=== PATIENT | male | born 1955 | race Asian ===

== ENCOUNTER 2023-10-28 06:35 | Inpatient (IN) | payer MEDICARE, OTHER ==
[~2023-10-28] VITALS: Ht 170.2 cm; Wt 69.2 kg
[2023-10-28 07:09] LABS: CALCIUM, TOTAL 9.4 mg/dL (8.8-10.5); CREATININE 1.54 mg/dL (0.60-1.30); POTASSIUM 3.4 mmol/L (3.5-5.1)
[2023-10-28 07:10] LABS: BASOPHILS % (AUTO) 0.6 % (0.0-2.0); EOSINOPHILS % (AUTO) 1.6 % (1.0-6.0); HEMATOCRIT 43.5 % (41-53); HEMOGLOBIN 14.6 g/dL (13.5-17.5); LYMPHOCYTES # (AUTO) 2.8 K/uL (1.0-4.8); LYMPHOCYTES % (AUTO) 30.2 % (22.0-44.0); MEAN CORPUSCULAR HEMOGLOBIN 31.8 pg (26.0-34.0); MEAN CORPUSCULAR HGB CONC 33.5 G/dL (31.0-37.0); MEAN CORPUSCULAR VOLUME 95 fL (80-100); MONOCYTES % (AUTO) 11.1 % (2.0-9.0); NEUTROPHILS # (AUTO) 5.2 K/uL (1.8-7.7); NEUTROPHILS % (AUTO) 56.5 % (40.0-70.0); PLATELET COUNT (AUTO) 243 K/uL (150-450); RED BLOOD CELL COUNT(AUTO) 4.58 MIL/uL (4.50-5.90); RED CELL DISTRIBUTION WIDTH 13.4 % (11.5-14.5); WHITE BLOOD COUNT (AUTO) 9.1 K/uL (4.5-11.0)
[2023-10-28 07:15] LABS: ALBUMIN 3.4 g/dL (3.4-5.0); BILIRUBIN,TOTAL 0.6 mg/dL (0.1-1.0); TOTAL PROTEIN, SERUM 8.3 g/dL (6.4-8.2)
[2023-10-28 07:17] LABS: TROPONIN I-HIGH SENSITIVITY 15 ng/L (<76)
[2023-10-28] MEDS: LABETALOL HCL 5 MG/ML 20 ML VIAL IVP ONE ×2 (07:18→08:03)
[2023-10-28 07:23] LABS: PROTHROMBIN TIME 10.9 SEC (9.4-11.6)
[2023-10-28] MEDS ORDERED: BACL10TA PO (07:34)
[2023-10-28] MEDS ORDERED: ATOR40TA28 PO (07:34)
[2023-10-28] MEDS ORDERED: ALFU10TA30 PO (07:34)
[2023-10-28] MEDS ORDERED: METF-1211 PO (07:34)
[2023-10-28] MEDS ORDERED: ACETAMINOPHEN 650 MG RECTAL SUPPOSITORY PR ONE (07:45)
[2023-10-28 07:54] LABS: COVID AG,FIA SOURCE NASAL SWAB
[2023-10-28 07:59] LABS: APPEARANCE,URINE CLEAR (CLEAR); BILIRUBIN,URINE NEGATIVE (NEGATIVE); COLOR,URINE COLORLESS (YELLOW); GLUCOSE, URINE (UA) NEGATIVE (NEGATIVE); KETONES,URINE NEGATIVE (NEGATIVE); LEUKOCYTE ESTERASE ,URINE NEGATIVE (NEGATIVE); NITRATE,URINE NEGATIVE (NEGATIVE); OCCULT BLOOD,URINE SMALL (NEGATIVE); PH,URINE 6.5 (5.0-8.0); PH,URINE DRUG SCREEN 6.5 (5.0-8.0); PROTEIN,URINE NEGATIVE (NEGATIVE); SPECIFIC GRAVITIY, URINE 1.048 (1.003-1.030); UROBILINOGEN,URINE <=1.0 mg/dL (<=1.0)
[2023-10-28] MEDS: ASPIRIN 300 MG RECTAL SUPPOSITORY PR ONE (08:02)
[2023-10-28 08:05] LABS: AMPHET/METH SCREEN,URINE POSITIVE (NEGATIVE); BARBITURATE SCREEN, URINE NEGATIVE (NEGATIVE); BENZODIAZEPINES SCREEN,URINE NEGATIVE (NEGATIVE); CANNABINOID SCREEN,URINE NEGATIVE (NEGATIVE); COCAINE SCREEN,URINE NEGATIVE (NEGATIVE); METHADONE SCREEN, URINE NEGATIVE (NEGATIVE); OPIATE SCREEN,URINE NEGATIVE (NEGATIVE); PHENCYCLIDINE SCREEN,URINE NEGATIVE (NEGATIVE)
[2023-10-28 08:07] LABS: ALCOHOL, URINE DRUG SCREEN NEGATIVE (NEGATIVE)
[2023-10-28 08:21] LABS: SARS-COV2 (COVID) ANTIGEN,FIA Negative (Negative)
[2023-10-28 08:23] LABS: BACTERIA,URINE Rare /HPF (None Seen); SQUAMOUS EPITHELIAL CELL,UR Few /LPF (None Seen); WBC,URINE 0-2 /HPF (0-5)
[2023-10-28] MEDS: HydrALAZINE HCL 20 MG/ML VIAL IVP ONE (08:54)
[2023-10-28] MEDS ORDERED: ACETAMINOPHEN 325 MG TABLET PO PRN (12:30)
[2023-10-28] MEDS ORDERED: ZOLPIDEM TARTRATE 5 MG TABLET PO PRN (12:30)
[2023-10-28] MEDS ORDERED: MAGNESIUM HYDROXIDE SUSPENSION 30 ML UDCUP PO PRN (12:30)
[2023-10-28] MEDS ORDERED: HYDROCODONE/ACETAMINOPHEN 5-325 MG TABLET PO PRN (12:30)
[2023-10-28] MEDS ORDERED: ONDANSETRON HCL 4 MG/2 ML VIAL IVP PRN (12:30)
[2023-10-28] MEDS ORDERED: BISACODYL 10 MG RECTAL RECTAL SUPPOSITORY PR PRN (12:30)
[2023-10-28] MEDS ORDERED: MORPHINE SULFATE 2 MG/ML SYRINGE IVP PRN (12:30)
[2023-10-28] MEDS: CLOPIDOGREL BISULFATE 75 MG TABLET PO SCH (13:02)
[2023-10-28 13:35] LABS: TROPONIN I-HIGH SENSITIVITY 19 ng/L (<76)
[2023-10-28] MEDS: HEPARIN SODIUM,PORCINE 5,000 UNITS/ML VIAL SQ SCH (16:23)
[2023-10-28 18:56] LABS: TROPONIN I-HIGH SENSITIVITY 17 ng/L (<76)
[2023-10-28 19:44] VITALS: BP 140/90; PULSE 86; RESP 20; TEMP 98.2
[2023-10-28 20:15] LABS: GLUCOMETER DEV NAME(LOC) ERT.5; GLUCOSE,POINT OF CARE 169 MG/DL (70-110)
[2023-10-28] MEDS ORDERED: IOHEXOL 350 MG/ML 100 ML VIAL ONE (20:21)
[2023-10-28] MEDS ORDERED: SODIUM CHLORIDE 0.9% 100 ML ONE (20:21)
[2023-10-28] MEDS: DOCUSATE SODIUM 100 MG CAPSULE PO SCH (22:15)
[2023-10-28] MEDS: ATORVASTATIN CALCIUM 20 MG TABLET PO SCH (22:15)
[2023-10-28 22:38] LABS: CHOL/HDL RATIO 3.8 (4.2-7.3)
[2023-10-28] MEDS: INSULIN LISPRO 100 UNITS/ML SQ PRN (23:30)
[2023-10-28] MEDS ORDERED: DEXTROSE 50%-WATER 25 GM/50 ML SYRINGE IVP PRN (23:30)
[2023-10-28] MEDS: SODIUM CHLORIDE 0.9% 1,000 ML IV ONE (23:33)
[2023-10-28] MEDS: POTASSIUM CHLORIDE 20 MEQ ER TABLET PO ONE (23:33)
[2023-10-29] VITALS (9 sets, daily range): BP systolic 144–180; BP diastolic 76–106; PULSE 81–102; RESP 18–20; TEMP 97.8–98.8
[2023-10-29] MEDS: HydrALAZINE HCL 20 MG/ML VIAL IVP PRN (00:12)
[2023-10-29 01:01] LABS: GLUCOMETER DEV NAME(LOC) 5N.2C; GLUCOSE,POINT OF CARE 196 MG/DL (70-110)
[2023-10-29 07:01] LABS: BASOPHILS % (AUTO) 1.1 % (0.0-2.0); EOSINOPHILS % (AUTO) 1.3 % (1.0-6.0); HEMATOCRIT 42.4 % (41-53); LYMPHOCYTES # (AUTO) 2.4 K/uL (1.0-4.8); LYMPHOCYTES % (AUTO) 24.9 % (22.0-44.0); MEAN CORPUSCULAR HEMOGLOBIN 31.8 pg (26.0-34.0); MEAN CORPUSCULAR VOLUME 96 fL (80-100); MONOCYTES % (AUTO) 10.2 % (2.0-9.0); NEUTROPHILS % (AUTO) 62.5 % (40.0-70.0); PLATELET COUNT (AUTO) 233 K/uL (150-450); RED BLOOD CELL COUNT(AUTO) 4.41 MIL/uL (4.50-5.90); RED CELL DISTRIBUTION WIDTH 13.4 % (11.5-14.5); WHITE BLOOD COUNT (AUTO) 9.6 K/uL (4.5-11.0)
[2023-10-29 07:51] LABS: CALCIUM, TOTAL 9.2 mg/dL (8.8-10.5); CREATININE 1.25 mg/dL (0.60-1.30); POTASSIUM 3.8 mmol/L (3.5-5.1); THYROID STIMULATING HORMONE 1.68 uIU/mL (0.36-3.74)
[2023-10-29] MEDS: ASPIRIN 81 MG CHEWABLE TABLET PO SCH (09:03)
[2023-10-29] MEDS: PANTOPRAZOLE SODIUM 40 MG DR TABLET PO SCH (09:05)
[2023-10-29 11:51] LABS: GLUCOMETER DEV NAME(LOC) 5S.1B; GLUCOSE,POINT OF CARE 136 MG/DL (70-110)
[2023-10-29] MEDS ORDERED: GADOTERATE MEGLUMINE 10 MMOL/20 ML VIAL IVP ONE (13:56)
[2023-10-29 18:21] LABS: GLUCOMETER DEV NAME(LOC) 5N.2C; GLUCOSE,POINT OF CARE 133 MG/DL (70-110)
[2023-10-29 18:21] LABS: GLUCOMETER DEV NAME(LOC) 5N.2C; GLUCOSE,POINT OF CARE 162 MG/DL (70-110)
[2023-10-29 22:41] LABS: GLUCOMETER DEV NAME(LOC) 5S.1B; GLUCOSE,POINT OF CARE 160 MG/DL (70-110)
[2023-10-30 03:17] VITALS: BP 183/93; PULSE 89; RESP 18; TEMP 98.7
[2023-10-30 07:33] LABS: ANION GAP 10 mmol/L (8-16); CALCIUM, TOTAL 9.1 mg/dL (8.8-10.5); CARBON DIOXIDE 25 mmol/L (22-29); CHLORIDE 104 mmol/L (98-107); CREATININE 1.13 mg/dL (0.60-1.30); GLOMERULAR FILTR. RATE CALC > 60 mL/min (>60); GLUCOSE,RANDOM 121 mg/dL (70-110); POTASSIUM 3.2 mmol/L (3.5-5.1); SODIUM SERUM 139 mmol/L (136-145); UREA NITROGEN, BLOOD 17 mg/dL (7-18)
[2023-10-30] MEDS: ATORVASTATIN CALCIUM 40 MG TABLET PO SCH (08:34)
[2023-10-30] MEDS: AmLODIPine BESYLATE 10 MG TABLET PO SCH (10:00)
[2023-10-30] MEDS ORDERED: POTASSIUM CHL 10 MEQ/WATER 50 ML IV PRN (12:15)
[2023-10-30 12:34] VITALS: BP 156/96; PULSE 91; RESP 18; TEMP 97.6
[2023-10-30 12:51] LABS: GLUCOMETER DEV NAME(LOC) 5N.2C; GLUCOSE,POINT OF CARE 231 MG/DL (70-110)
[2023-10-30 12:51] LABS: GLUCOMETER DEV NAME(LOC) 5N.1D; GLUCOSE,POINT OF CARE 147 MG/DL (70-110)
[2023-10-30 15:17] VITALS: BP 147/90; PULSE 93; RESP 18; TEMP 98
[2023-10-30] MEDS: POTASSIUM CHLORIDE 20 MEQ ER TABLET PO PRN (17:44)
[2023-10-30 21:04] VITALS: BP 160/89; PULSE 91; RESP 18; TEMP 97.8
[2023-10-30 22:46] LABS: GLUCOMETER DEV NAME(LOC) 5N.2C; GLUCOSE,POINT OF CARE 194 MG/DL (70-110)
[2023-10-30 22:46] LABS: GLUCOMETER DEV NAME(LOC) 5N.1D; GLUCOSE,POINT OF CARE 152 MG/DL (70-110)
[2023-10-31 00:19] VITALS: BP 156/89; PULSE 103; RESP 18; TEMP 98
[2023-10-31 06:31] VITALS: BP 157/99; PULSE 106; RESP 18; TEMP 97.7
[2023-10-31 07:11] VITALS: BP 171/102; PULSE 100; RESP 18; TEMP 97.9
[2023-10-31 07:12] LABS: ANION GAP 11 mmol/L (8-16); CALCIUM, TOTAL 9.5 mg/dL (8.8-10.5); CARBON DIOXIDE 27 mmol/L (22-29); CHLORIDE 101 mmol/L (98-107); CREATININE 1.08 mg/dL (0.60-1.30); GLOMERULAR FILTR. RATE CALC > 60 mL/min (>60); GLUCOSE,RANDOM 137 mg/dL (70-110); POTASSIUM 3.4 mmol/L (3.5-5.1); SODIUM SERUM 139 mmol/L (136-145); UREA NITROGEN, BLOOD 17 mg/dL (7-18)
[2023-10-31 07:34] LABS: BASOPHILS % (AUTO) 0.6 % (0.0-2.0); EOSINOPHILS % (AUTO) 1.6 % (1.0-6.0); HEMATOCRIT 47.1 % (41-53); HEMOGLOBIN 15.6 g/dL (13.5-17.5); LYMPHOCYTES # (AUTO) 2.3 K/uL (1.0-4.8); LYMPHOCYTES % (AUTO) 22.5 % (22.0-44.0); MEAN CORPUSCULAR HEMOGLOBIN 31.7 pg (26.0-34.0); MEAN CORPUSCULAR HGB CONC 33.2 G/dL (31.0-37.0); MEAN CORPUSCULAR VOLUME 96 fL (80-100); MONOCYTES # (AUTO) 1.3 K/uL (0.1-1.0); MONOCYTES % (AUTO) 12.6 % (2.0-9.0); NEUTROPHILS # (AUTO) 6.5 K/uL (1.8-7.7); NEUTROPHILS % (AUTO) 62.7 % (40.0-70.0); PLATELET COUNT (AUTO) 237 K/uL (150-450); RED BLOOD CELL COUNT(AUTO) 4.93 MIL/uL (4.50-5.90); RED CELL DISTRIBUTION WIDTH 13.4 % (11.5-14.5); WHITE BLOOD COUNT (AUTO) 10.3 K/uL (4.5-11.0)
[2023-10-31 08:11] LABS: GLUCOMETER DEV NAME(LOC) 5S.1B; GLUCOSE,POINT OF CARE 154 MG/DL (70-110)
[2023-10-31 09:50] VITALS: BP 115/66; PULSE 104
[2023-10-31 11:31] LABS: GLUCOMETER DEV NAME(LOC) 5S.1B; GLUCOSE,POINT OF CARE 225 MG/DL (70-110)
[2023-10-31 12:03] VITALS: BP 128/85; PULSE 92; RESP 18; TEMP 97.9
[2023-10-31 19:45] VITALS: BP 138/88; PULSE 80; RESP 19; TEMP 98.3
[2023-10-31 20:16] LABS: GLUCOMETER DEV NAME(LOC) 5N.2C; GLUCOSE,POINT OF CARE 158 MG/DL (70-110)
[2023-11-01] VITALS (7 sets, daily range): BP systolic 113–151; BP diastolic 65–99; PULSE 82–103; RESP 18–19; TEMP 98–98.8
[2023-11-01 01:31] LABS: GLUCOMETER DEV NAME(LOC) 5N.1D; GLUCOSE,POINT OF CARE 172 MG/DL (70-110)
[2023-11-01 07:07] LABS: BASOPHILS % (AUTO) 0.8 % (0.0-2.0); EOSINOPHILS % (AUTO) 2.7 % (1.0-6.0); HEMATOCRIT 46.9 % (41-53); HEMOGLOBIN 15.7 g/dL (13.5-17.5); LYMPHOCYTES # (AUTO) 3.6 K/uL (1.0-4.8); LYMPHOCYTES % (AUTO) 34.4 % (22.0-44.0); MEAN CORPUSCULAR HEMOGLOBIN 32.1 pg (26.0-34.0); MEAN CORPUSCULAR HGB CONC 33.5 G/dL (31.0-37.0); MEAN CORPUSCULAR VOLUME 96 fL (80-100); MONOCYTES % (AUTO) 9.6 % (2.0-9.0); NEUTROPHILS # (AUTO) 5.4 K/uL (1.8-7.7); NEUTROPHILS % (AUTO) 52.5 % (40.0-70.0); PLATELET COUNT (AUTO) 242 K/uL (150-450); RED CELL DISTRIBUTION WIDTH 13.5 % (11.5-14.5); WHITE BLOOD COUNT (AUTO) 10.3 K/uL (4.5-11.0)
[2023-11-01 07:46] LABS: GLUCOMETER DEV NAME(LOC) 5S.1B; GLUCOSE,POINT OF CARE 152 MG/DL (70-110)
[2023-11-02 03:34] VITALS: BP 140/79; PULSE 90; RESP 18; TEMP 98.5
[2023-11-02 06:21] LABS: BASOPHILS % (AUTO) 0.5 % (0.0-2.0); EOSINOPHILS % (AUTO) 1.9 % (1.0-6.0); HEMATOCRIT 46.5 % (41-53); HEMOGLOBIN 15.8 g/dL (13.5-17.5); LYMPHOCYTES # (AUTO) 2.2 K/uL (1.0-4.8); LYMPHOCYTES % (AUTO) 23.9 % (22.0-44.0); MEAN CORPUSCULAR HEMOGLOBIN 32.4 pg (26.0-34.0); MEAN CORPUSCULAR VOLUME 96 fL (80-100); MONOCYTES % (AUTO) 11.5 % (2.0-9.0); NEUTROPHILS # (AUTO) 5.7 K/uL (1.8-7.7); NEUTROPHILS % (AUTO) 62.2 % (40.0-70.0); PLATELET COUNT (AUTO) 227 K/uL (150-450); RED BLOOD CELL COUNT(AUTO) 4.87 MIL/uL (4.50-5.90); RED CELL DISTRIBUTION WIDTH 13.3 % (11.5-14.5); WHITE BLOOD COUNT (AUTO) 9.1 K/uL (4.5-11.0)
[2023-11-02 07:21] LABS: GLUCOMETER DEV NAME(LOC) 5N.1D; GLUCOSE,POINT OF CARE 199 MG/DL (70-110)
[2023-11-02 08:33] VITALS: BP 131/83; PULSE 93; RESP 19; TEMP 98.4
[2023-11-02 09:41] LABS: GLUCOMETER DEV NAME(LOC) 5S.1B; GLUCOSE,POINT OF CARE 162 MG/DL (70-110)
[2023-11-02 11:29] VITALS: BP 145/91; PULSE 85; RESP 18; TEMP 98.5
== END 2023-11-02 12:35 | disposition home or self-care (01) | DRG 64 ==
LOC: EMS 06:36 → EDH 15:05 → 5S 15:11
PROVIDERS: ADMIT Internal Medicine; ATTEND Internal Medicine
DX: I63.81 Other cerebral infarction due to occlusion or stenosis of small artery (principal); G92.9 Unspecified toxic encephalopathy; N17.0 Acute kidney failure with tubular necrosis; I16.1 Hypertensive emergency; N14.2 Nephropathy induced by unspecified drug, medicament or biological substance; E11.9 Type 2 diabetes mellitus without complications; F15.90 Other stimulant use, unspecified, uncomplicated; Z20.822 Contact with and (suspected) exposure to COVID-19; E87.6 Hypokalemia; R31.9 Hematuria, unspecified; I10 Essential (primary) hypertension; R29.705 NIHSS score 5
CPT/HCPCS: 70450; 70496; 70498; 70553; 71045; 80048; 80053; 80061; 80307; 81001; 82948; 82962; 83735; 84132; 84443; 84484; 85025; 85610; 85730; 92507; 92526; 92610; 93005; 93306; 93880; 97116; 97162; 97167; 97530; 97535; 99285; J0360; J1644; J3490; J7030; J7050; Q9967; 36415-L1; 36415-TC

== ENCOUNTER 2023-11-19 20:41 | Emergency (ER) | payer MEDICARE, OTHER ==
[~2023-11-19] VITALS: Ht 175.3 cm; Wt 75.4 kg
[~2023-11-19 20:41] MED LIST: ALFU10TA30 PO; ATOR40TA28 PO; BACL10TA PO; METF-1211 PO
[2023-11-19 21:03] VITALS: TEMP 98.4
[2023-11-19 21:30] LABS: BASOPHILS % (AUTO) 0.4 % (0.0-2.0); EOSINOPHILS % (AUTO) 1.6 % (1.0-6.0); HEMATOCRIT 38.2 % (41-53); HEMOGLOBIN 12.7 g/dL (13.5-17.5); LYMPHOCYTES # (AUTO) 2.4 K/uL (1.0-4.8); LYMPHOCYTES % (AUTO) 30.5 % (22.0-44.0); MEAN CORPUSCULAR HEMOGLOBIN 31.2 pg (26.0-34.0); MEAN CORPUSCULAR HGB CONC 33.2 G/dL (31.0-37.0); MEAN CORPUSCULAR VOLUME 94 fL (80-100); MONOCYTES % (AUTO) 12.6 % (2.0-9.0); NEUTROPHILS # (AUTO) 4.3 K/uL (1.8-7.7); NEUTROPHILS % (AUTO) 54.9 % (40.0-70.0); PLATELET COUNT (AUTO) 204 K/uL (150-450); RED BLOOD CELL COUNT(AUTO) 4.07 MIL/uL (4.50-5.90); RED CELL DISTRIBUTION WIDTH 13.3 % (11.5-14.5); WHITE BLOOD COUNT (AUTO) 7.8 K/uL (4.5-11.0)
[2023-11-19 21:45] LABS: ANION GAP 6 mmol/L (8-16); CARBON DIOXIDE 30 mmol/L (22-29); CHLORIDE 103 mmol/L (98-107); CREATININE 1.77 mg/dL (0.60-1.30); GLOMERULAR FILTR. RATE CALC 38 mL/min (>60); GLUCOSE,RANDOM 179 mg/dL (70-110); POTASSIUM 3.8 mmol/L (3.5-5.1); SODIUM SERUM 139 mmol/L (136-145); UREA NITROGEN, BLOOD 25 mg/dL (7-18)
[2023-11-19 21:46] LABS: CALCIUM, TOTAL 8.9 mg/dL (8.8-10.5)
[2023-11-19 21:51] LABS: ALANINE AMINOTRANSFERASE 25 U/L (12-78); ALBUMIN 3.2 g/dL (3.4-5.0); ALKALINE PHOSPHATASE 67 U/L (46-116); ASPARTATE AMINOTRANSFERASE 23 U/L (15-37); BILIRUBIN,TOTAL 0.4 mg/dL (0.1-1.0); CREATINE KINASE, TOTAL ONLY 72 U/L (39-308); TOTAL PROTEIN, SERUM 7.7 g/dL (6.4-8.2)
[2023-11-19 21:54] LABS: LACTIC ACID 1.8 mmol/L (0.4-2.0)
[2023-11-19 21:59] LABS: PROTHROMBIN TIME 10.3 SEC (9.4-11.6)
[2023-11-19 22:05] LABS: GLUCOMETER DEV NAME(LOC) ERT.5; GLUCOSE,POINT OF CARE 161 MG/DL (70-110)
[2023-11-19 22:07] LABS: AMMONIA 26 umol/L (11-32); TROPONIN I-HIGH SENSITIVITY 9 ng/L (<76)
[2023-11-19] MEDS: SODIUM CHLORIDE 0.9% 1,000 ML IV ONE (22:38)
[2023-11-19 23:05] LABS: COVID AG,FIA SOURCE NASAL SWAB
[2023-11-19 23:28] LABS: SARS-COV2 (COVID) ANTIGEN,FIA Negative (Negative)
[2023-11-20 00:19] VITALS: BP 151/123; PULSE 52; RESP 19
[2023-11-20 00:24] LABS: APPEARANCE,URINE CLEAR (CLEAR); BILIRUBIN,URINE NEGATIVE (NEGATIVE); COLOR,URINE LIGHT YELLOW (YELLOW); GLUCOSE, URINE (UA) NEGATIVE (NEGATIVE); KETONES,URINE NEGATIVE (NEGATIVE); LEUKOCYTE ESTERASE ,URINE TRACE (NEGATIVE); NITRATE,URINE NEGATIVE (NEGATIVE); OCCULT BLOOD,URINE NEGATIVE (NEGATIVE); PH,URINE 5.5 (5.0-8.0); PH,URINE DRUG SCREEN 5.5 (5.0-8.0); PROTEIN,URINE NEGATIVE (NEGATIVE); SPECIFIC GRAVITIY, URINE 1.011 (1.003-1.030); UROBILINOGEN,URINE <=1.0 mg/dL (<=1.0)
[2023-11-20 00:29] LABS: AMPHET/METH SCREEN,URINE POSITIVE (NEGATIVE); BARBITURATE SCREEN, URINE NEGATIVE (NEGATIVE); BENZODIAZEPINES SCREEN,URINE NEGATIVE (NEGATIVE); CANNABINOID SCREEN,URINE NEGATIVE (NEGATIVE); COCAINE SCREEN,URINE NEGATIVE (NEGATIVE); METHADONE SCREEN, URINE NEGATIVE (NEGATIVE); OPIATE SCREEN,URINE NEGATIVE (NEGATIVE); PHENCYCLIDINE SCREEN,URINE NEGATIVE (NEGATIVE)
[2023-11-20 00:33] LABS: ALCOHOL, URINE DRUG SCREEN NEGATIVE (NEGATIVE)
[2023-11-20 00:50] LABS: BACTERIA,URINE Moderate /HPF (None Seen); RBC,URINE 0-2 /HPF (0-2); SQUAMOUS EPITHELIAL CELL,UR Few /LPF (None Seen)
== END 2023-11-20 01:00 | disposition short-term general hospital (02) ==
LOC: EMS 20:41
DX: R53.83 Other fatigue (principal); R53.1 Weakness; E11.9 Type 2 diabetes mellitus without complications; F15.90 Other stimulant use, unspecified, uncomplicated; Z20.822 Contact with and (suspected) exposure to COVID-19
CPT/HCPCS: 99285; 96360; 70450; 71045; 87426; 80053; 81001; 82140; 82550; 82962; 83605; 84484; 85025; 85610; 85730; 36415; 87086; 87186; 93005; 80307; J7030

== ENCOUNTER 2024-05-05 22:53 | Emergency (ER) | payer MEDICARE ==
[~2024-05-05] VITALS: Ht 165.1 cm; Wt 68.2 kg
[2024-05-05 22:58] VITALS: TEMP 98
[2024-05-06 00:14] VITALS: BP 189/110; PULSE 94; RESP 16; O2SAT 96
[2024-05-06] MEDS: KETOROLAC TROMETHAMINE 60 MG/2 ML VIAL IM ONE (00:28)
[2024-05-06] MEDS: BACITRACIN 0.9 GM PACKET OINTMENT TP ONE (00:28)
[2024-05-06] MEDS: HYDROCODONE/ACETAMINOPHEN 5-325 MG TABLET PO ONE (00:28)
[2024-05-06] MEDS: LIDOCAINE 1% 10 ML VIAL SQ ONE (00:29)
[2024-05-06] MEDS: PERTUSS(ACELL),DIPH,TET/PF 0.5 ML SYRINGE [ADULT] IM. ONE (00:30)
[2024-05-06] MEDS ORDERED: BACI28.410 TP (02:51)
[2024-05-06] MEDS ORDERED: ACET-66 PO (02:51)
== END 2024-05-06 03:29 | disposition home or self-care (01) ==
LOC: EMS 22:54
DX: S01.81XA Laceration without foreign body of other part of head, initial encounter (principal); F17.210 Nicotine dependence, cigarettes, uncomplicated; E11.9 Type 2 diabetes mellitus without complications; E78.00 Pure hypercholesterolemia, unspecified; N40.0 Benign prostatic hyperplasia without lower urinary tract symptoms; W54.0XXA Bitten by dog, initial encounter; Y93.89 Activity, other specified; Y92.89 Other specified places as the place of occurrence of the external cause; Y99.8 Other external cause status
CPT/HCPCS: 99284; 70486; 90715; 90471; 12013; 96372; J1885; J3490

== ENCOUNTER 2024-10-18 00:37 | Emergency (ER) | payer MEDICARE ==
[~2024-10-18] VITALS: Ht 165.1 cm; Wt 68.0 kg
[~2024-10-18 00:37] MED LIST changes: +ACET-66 PO; +BACI28.410 TP
[2024-10-18] MEDS ORDERED: 0.9% SODIUM CHLORIDE 10 ML SYRINGE IVP PRN (01:00)
[2024-10-18 01:32] LABS: BASOPHILS % (AUTO) 0.3 % (0.0-2.0); EOSINOPHILS % (AUTO) 0.1 % (1.0-6.0); HEMATOCRIT 40.6 % (41-53); HEMOGLOBIN 13.6 g/dL (13.5-17.5); LYMPHOCYTES # (AUTO) 0.9 K/uL (1.0-4.8); LYMPHOCYTES % (AUTO) 7.3 % (22.0-44.0); MEAN CORPUSCULAR HEMOGLOBIN 31.4 pg (26.0-34.0); MEAN CORPUSCULAR HGB CONC 33.5 G/dL (31.0-37.0); MEAN CORPUSCULAR VOLUME 94 fL (80-100); MONOCYTES % (AUTO) 8.5 % (2.0-9.0); NEUTROPHILS # (AUTO) 10.3 K/uL (1.8-7.7); NEUTROPHILS % (AUTO) 83.8 % (40.0-70.0); PLATELET COUNT (AUTO) 196 K/uL (150-450); RED BLOOD CELL COUNT(AUTO) 4.33 MIL/uL (4.50-5.90); RED CELL DISTRIBUTION WIDTH 13.6 % (11.5-14.5); WHITE BLOOD COUNT (AUTO) 12.3 K/uL (4.5-11.0)
[2024-10-18 01:42] LABS: ANION GAP 7 mmol/L (8-16); CALCIUM, TOTAL 8.1 mg/dL (8.8-10.5); CARBON DIOXIDE 24 mmol/L (22-29); CHLORIDE 104 mmol/L (98-107); CREATININE 1.45 mg/dL (0.60-1.30); GLOMERULAR FILTR. RATE CALC 48 mL/min (>60); GLUCOSE,RANDOM 188 mg/dL (70-110); POTASSIUM 3.8 mmol/L (3.5-5.1); SODIUM SERUM 135 mmol/L (136-145); UREA NITROGEN, BLOOD 21 mg/dL (7-18)
[2024-10-18 01:47] LABS: ALANINE AMINOTRANSFERASE 20 U/L (12-78); ALBUMIN 3.1 g/dL (3.4-5.0); ALKALINE PHOSPHATASE 67 U/L (46-116); ASPARTATE AMINOTRANSFERASE 19 U/L (15-37); BILIRUBIN,TOTAL 0.6 mg/dL (0.1-1.0); TOTAL PROTEIN, SERUM 7.1 g/dL (6.4-8.2)
[2024-10-18 01:49] LABS: TROPONIN I-HIGH SENSITIVITY 22 ng/L (<76)
[2024-10-18 01:51] LABS: B-TYPE NATRIURETIC PEPTIDE 56 pg/mL (0-100); LACTIC ACID 1.6 mmol/L (0.4-2.0)
[2024-10-18] MEDS: SODIUM CHLORIDE 0.9% 500 ML IV ONE (02:04)
[2024-10-18] MEDS: ACETAMINOPHEN 500 MG TABLET PO ONE (02:04)
[2024-10-18 03:06] LABS: COVID AG,FIA SOURCE NASAL SWAB
[2024-10-18 03:46] LABS: INFLUENZA TYPE A NEGATIVE FOR TYPE A (NEGATIVE); INFLUENZA TYPE B NEGATIVE FOR TYPE B (NEGATIVE); SARS-COV2 (COVID) ANTIGEN,FIA Negative (Negative)
[2024-10-18 04:18] LABS: APPEARANCE,URINE CLEAR (CLEAR); BILIRUBIN,URINE NEGATIVE (NEGATIVE); COLOR,URINE LIGHT YELLOW (YELLOW); GLUCOSE, URINE (UA) TRACE mg/dL (NEGATIVE); KETONES,URINE NEGATIVE (NEGATIVE); LEUKOCYTE ESTERASE ,URINE NEGATIVE (NEGATIVE); NITRATE,URINE NEGATIVE (NEGATIVE); OCCULT BLOOD,URINE NEGATIVE (NEGATIVE); PH,URINE 5.5 (5.0-8.0); PROTEIN,URINE NEGATIVE (NEGATIVE); SPECIFIC GRAVITIY, URINE 1.012 (1.003-1.030); UROBILINOGEN,URINE <=1.0 mg/dL (<=1.0)
[2024-10-18 04:56] VITALS: BP 161/99; PULSE 106; RESP 20; TEMP 99.1; O2SAT 96
== END 2024-10-18 05:37 | disposition home or self-care (01) ==
LOC: EMS 00:37
DX: J06.9 Acute upper respiratory infection, unspecified (principal); B97.89 Other viral agents as the cause of diseases classified elsewhere; R05.9 Cough, unspecified; R06.02 Shortness of breath; I10 Essential (primary) hypertension; E11.9 Type 2 diabetes mellitus without complications; E78.00 Pure hypercholesterolemia, unspecified; Z86.73 Personal history of transient ischemic attack (TIA), and cerebral infarction without residual deficits; Z87.891 Personal history of nicotine dependence; Z79.899 Other long term (current) drug therapy; Z20.822 Contact with and (suspected) exposure to COVID-19
CPT/HCPCS: 99285; 96360; 71045; 87426; 80048; 80076; 81003; 83605; 83880; 84484; 85025; 87040; 87804; 36415; 93005; 84145; G0480; J7040